=== PATIENT | male | born 1965 | race Caucasian/White ===

== ENCOUNTER 2017-10-11 19:10 | Emergency (ER) | payer MEDICAID ==
[~2017-10-11] VITALS: Ht 167.6 cm; Wt 80.1 kg
[2017-10-11] MEDS ORDERED: ACETAMINOPHEN 325MG TABLET ONE (20:45)
[2017-10-11 23:45] VITALS: BP 122/78
== END 2017-10-11 23:51 | disposition home or self-care (01) ==
LOC: ER 19:10
DX: J18.9 Pneumonia, unspecified organism (principal)
CPT/HCPCS: 71045; 99283; Z7610